=== PATIENT | male | born 1945 | race Caucasian/White ===

== ENCOUNTER 2019-01-06 08:44 | Emergency (ER) | payer MEDICARE ==
[~2019-01-06] VITALS: Ht 175.3 cm; Wt 85.0 kg
[2019-01-06 09:20] VITALS: BP 148/55
[2019-01-06] MEDS ORDERED: GABA-530 PO (09:37)
[2019-01-06] MEDS ORDERED: METH4TAB81 PO (09:37)
== END 2019-01-06 09:48 | disposition home or self-care (01) ==
LOC: ER 08:46
DX: M25.512 Pain in left shoulder (principal); G89.29 Other chronic pain; Z79.899 Other long term (current) drug therapy
CPT/HCPCS: 99283